=== PATIENT | female | born 2000 | race American Indian/Alaskan Native ===

== ENCOUNTER 2022-09-11 11:48 | Emergency (ER) | payer MEDICAID ==
[~2022-09-11] VITALS: Ht 157.5 cm; Wt 81.0 kg
[2022-09-11 12:17] VITALS: BP 132/63
[2022-09-11] MEDS ORDERED: LIDOcaine 1% W/epiNEPHrine 1:100,000 20ml vial SQ ONE (12:45)
[2022-09-11] MEDS ORDERED: vancomycin/NS 1 GM ADD-VANTAGE 250 ML IV ONE (12:45)
[2022-09-11] MEDS ORDERED: morphine 4 MG/ML inj SYRINge IV ONE (12:45)
[2022-09-11] MEDS ORDERED: ondansetron/PF 4mg/2ml inj IV ONE (12:45)
[2022-09-11] MEDS ORDERED: LIDOCAINE 2%/EPI 1:100,000 inj. Multi-dose 20 ML VIAL SQ ONE (13:05)
[2022-09-11] MEDS ORDERED: sulfamethoxazole/trimethoprim DS (800/160mg) tablet PO ONE (13:10)
[2022-09-11] MEDS ORDERED: ondansetron 4mg rapidly disintigrating tab PO ONE (13:20)
[2022-09-11] MEDS ORDERED: morphine 4 MG/ML inj SYRINge IM ONE (13:21)
[2022-09-11] MEDS ORDERED: SULF1TAB49 PO (13:50)
[2022-09-11] MEDS ORDERED: CEPH-585 PO (13:50)
[2022-09-11] MEDS ORDERED: HYDR-3965 PO (13:53)
--- NOTE | 2022-09-11 14:44 | NUR ---
MD MURGUIA AWARE OF I&D COMPLETED BY MD BRANNON.
== END 2022-09-11 14:54 | disposition home or self-care (01) ==
LOC: ER 11:48
DX: L02.31 Cutaneous abscess of buttock (principal); L03.317 Cellulitis of buttock
CPT/HCPCS: 10060; 96372; 99284; J2270; A6449

== ENCOUNTER 2022-09-13 11:04 | Emergency (ER) | payer MEDICAID ==
[~2022-09-13] VITALS: Ht 157.5 cm; Wt 81.8 kg
[~2022-09-13 11:04] MED LIST: CEPH-585 PO; HYDR-3965 PO; SULF1TAB49 PO
[2022-09-13 11:45] VITALS: BP 142/100
== END 2022-09-13 15:20 | disposition left against medical advice (07) ==
LOC: ER 11:05
DX: L02.31 Cutaneous abscess of buttock (principal); Z53.21 Procedure and treatment not carried out due to patient leaving prior to being seen by health care provider